=== PATIENT | female | born 1980 | race Caucasian/White ===

== ENCOUNTER 2017-01-13 17:02 | Emergency (ER) | payer SELFPAY ==
[~2017-01-13] VITALS: Ht 188 cm; Wt 118.1 kg
[~2017-01-13 17:02] MED LIST: AUGMENTIN875 MG PO; Flexeril PO; MOTRIN800 MG PO; MS CONTIN,ORAMO30 M1 PO; NO MEDS; PERCOCET 5/31 TABLET PO
[2017-01-13 19:37] VITALS: BP 122/60
== END 2017-01-13 19:38 | disposition home or self-care (01) ==
LOC: EME 17:02
DX: S80.212A Abrasion, left knee, initial encounter (principal); S80.211A Abrasion, right knee, initial encounter; S63.502A Unspecified sprain of left wrist, initial encounter; M54.9 Dorsalgia, unspecified; M25.571 Pain in right ankle and joints of right foot; M25.572 Pain in left ankle and joints of left foot; M25.522 Pain in left elbow; W18.30XA Fall on same level, unspecified, initial encounter; Y92.480 Sidewalk as the place of occurrence of the external cause
CPT/HCPCS: 73090; 73130; 73564; 99281; 99283; J1885

== ENCOUNTER 2017-08-17 17:40 | Emergency (ER) | payer SELFPAY ==
[~2017-08-17] VITALS: Ht 188 cm; Wt 120.1 kg
[2017-08-17 19:12] LABS: HEMATOCRIT 43.1 % (36.0-46.0); HEMOGLOBIN 13.9 G/DL (11.9-15.5); MCH 24.5 PG (29.0-34.0); MCHC 32.3 G/DL (30.0-36.0); MCV 75.9 FL (83-99); PLATELET COUNT 380 K/uL (156-360); RBC DIS.WIDTH-CV 14.7 % (11.8-14.6); RBC DIS.WIDTH-SD 40.3 % (39-53); RED BLOOD COUNT 5.68 M/uL (3.80-5.20); WHITE BLOOD COUNT 12.2 K/uL (4.1-10.2)
[2017-08-17 19:24] LABS: CHLORIDE 104 mEq/L (99-109); POTASSIUM 3.9 mEq/L (3.7-5.4); SODIUM 139 mEq/L (136-147)
[2017-08-17 19:26] LABS: GLUCOSE 208 mg/dL (70-99)
[2017-08-17 19:29] LABS: CREATININE 0.8 mg/dL (0.6-1.3); GFR ESTIMATE (CALCULATED) > 59 mL/min/
[2017-08-17 19:30] LABS: UREA NITROGEN (BUN) 11 mg/dL (9-23)
[2017-08-17 19:34] LABS: TROP-I INTERPRETATION NEGATIVE; TROPONIN-I < 0.01 ng/mL (0.0-0.30)
[2017-08-17 22:56] LABS: TROP-I INTERPRETATION NEGATIVE; TROPONIN-I < 0.01 ng/mL (0.0-0.30)
[2017-08-17 23:07] VITALS: BP 106/74
== END 2017-08-17 23:08 | disposition home or self-care (01) ==
LOC: EME 17:40
PROVIDERS: Physician Assistant
DX: R07.89 Other chest pain (principal); E11.65 Type 2 diabetes mellitus with hyperglycemia; Z82.49 Family history of ischemic heart disease and other diseases of the circulatory system
CPT/HCPCS: 71046; 80048; 84484; 85027; 93005; 99281; 99284